=== PATIENT | female | born 1990 | race Caucasian/White ===

== ENCOUNTER 2016-09-06 20:39 | Emergency (ER) | payer MEDICAID ==
[~2016-09-06] VITALS: Ht 165.1 cm; Wt 79.5 kg
[2016-09-06 20:43] VITALS: BP 132/96; TEMP 97.8
[2016-09-06] MEDS ORDERED: SPRINTEC 35 MCG1 TAB PO (20:46)
[2016-09-06] MEDS ORDERED: PROAIR HFA0.09 MG/AC IH (20:46)
[2016-09-06] MEDS ORDERED: DOXYCYCLINE 10100 MG PO (22:06)
[2016-09-06] MEDS ORDERED: PREDNISONE20 MG PO (22:06)
[2016-09-06 22:41] VITALS: PULSE 80
== END 2016-09-06 22:42 | disposition home or self-care (01) ==
LOC: COL.ER 20:39 → EDSEX 20:52 → COL.ER 22:42
DX: J01.90 Acute sinusitis, unspecified (principal); F17.210 Nicotine dependence, cigarettes, uncomplicated; J45.909 Unspecified asthma, uncomplicated; Z88.0 Allergy status to penicillin; Z88.2 Allergy status to sulfonamides; R59.0 Localized enlarged lymph nodes
CPT/HCPCS: J7512